=== PATIENT | male | born 1940 | race Asian ===

== ENCOUNTER 2017-11-05 03:37 | Emergency (ER) | payer OTHER ==
[~2017-11-05] VITALS: Ht 167.6 cm; Wt 82.0 kg
[~2017-11-05 03:37] MED LIST: ASPIR 8181 M1 PO; ASPIRIN81 M2 PO; ATORVASTATIN CA40 MG PO; BENADRYL25 MG PO; COLACE100 MG PO; COREG25 M1 PO; COZAAR25 MG PO; ELMIRON100 MG PO; ISOSORBIDE MONO30 MG PO; LOVENOX30 MG/0.3 SC; MIRAPEX0.5 MG PO; NAPROXEN500 MG PO; OMEPRAZOLE40 M1 PO; OXYCODONE HCL5 MG PO; PRAMIPEXOLE DI0.5 MG PO; RANITIDINE HCL300 MG PO; VOLTAREN 1% GE100 GM TP; XARELTO10 MG PO
[2017-11-05 05:10] LABS: CARBON DIOXIDE (BICARBONATE) 26.7 MEQ/L (20-31)
[2017-11-05 05:18] LABS: CHLORIDE 102 mEq/L (99-109); SODIUM 132 mEq/L (136-147)
[2017-11-05 05:20] LABS: GLUCOSE 103 mg/dL (70-99)
[2017-11-05 05:24] LABS: CREATININE 1.1 mg/dL (0.6-1.3); GFR ESTIMATE (CALCULATED) > 59 mL/min/ (58.99-99999)
[2017-11-05 05:25] LABS: UREA NITROGEN (BUN) 15 mg/dL (9-23)
[2017-11-05 05:32] LABS: TROP-I INTERPRETATION NEGATIVE; TROPONIN-I < 0.01 ng/mL (0.0-0.30)
[2017-11-05 05:35] LABS: HEMATOCRIT 36.8 % (38.0-50.0); HEMOGLOBIN 12.6 G/DL (12.5-16.6); MCH 28.6 PG (29.0-34.0); MCHC 34.2 G/DL (30.0-36.0); MCV 83.4 FL (86-99); PLATELET COUNT 132 K/uL (156-360); RBC DIS.WIDTH-CV 13.3 % (11.8-14.6); RED BLOOD COUNT 4.41 M/uL (4.00-5.50); WHITE BLOOD COUNT 8.2 K/uL (4.1-10.2)
[2017-11-05] MEDS ORDERED: PHENERGAN-CODE120 ML PO (05:46)
[2017-11-05] MEDS ORDERED: PREDNISONE20 MG PO (05:46)
[2017-11-05] MEDS ORDERED: LEVAQUIN750 MG PO ×2 (05:46→05:47)
[2017-11-05] MEDS ORDERED: PROVENTIL HFA6.7 GM IH (05:46)
[2017-11-05 06:27] VITALS: BP 151/86
== END 2017-11-05 06:28 | disposition home or self-care (01) ==
LOC: EME 03:37
PROVIDERS: Emergency Medicine
DX: J18.9 Pneumonia, unspecified organism (principal); I10 Essential (primary) hypertension; I25.2 Old myocardial infarction; D64.9 Anemia, unspecified; K21.9 Gastro-esophageal reflux disease without esophagitis; Z95.1 Presence of aortocoronary bypass graft
CPT/HCPCS: 71045; 80048; 82803; 83605; 83880; 84484; 85027; 87040; 87502; 93005; 94640; J7512

== ENCOUNTER 2017-11-11 14:20 | Emergency (ER) | payer OTHER ==
[~2017-11-11] VITALS: Ht 167.6 cm; Wt 79.1 kg
[~2017-11-11 14:20] MED LIST changes: +LEVAQUIN750 MG PO; +PHENERGAN-CODE120 ML PO; +PREDNISONE20 MG PO; +PROVENTIL HFA6.7 GM IH
[2017-11-11 16:07] LABS: HEMATOCRIT 44.3 % (38.0-50.0); MCH 28.2 PG (29.0-34.0); MCHC 33.4 G/DL (30.0-36.0); MCV 84.5 FL (86-99); RBC DIS.WIDTH-SD 43.3 % (39-53); RED BLOOD COUNT 5.24 M/uL (4.00-5.50); WHITE BLOOD COUNT 9.8 K/uL (4.1-10.2)
[2017-11-11 16:10] LABS: CHLORIDE 93 mEq/L (99-109); POTASSIUM 3.7 mEq/L (3.7-5.4); SODIUM 131 mEq/L (136-147)
[2017-11-11 16:12] LABS: GLUCOSE 107 mg/dL (70-99)
[2017-11-11 16:16] LABS: GFR ESTIMATE (CALCULATED) 45 mL/min/ (58.99-99999)
[2017-11-11 16:20] LABS: TROP-I INTERPRETATION NEGATIVE; TROPONIN-I 0.02 ng/mL (0.0-0.30)
[2017-11-11 16:25] LABS: CREATININE 1.6 mg/dL (0.6-1.3); UREA NITROGEN (BUN) 32 mg/dL (9-23)
[2017-11-11 16:53] LABS: ABS NEUTROPHIL COUNT 7.8; ATYPICAL LYMPHOCYTE 2.6 %; EOSINOPHIL ABS CT 0.1; EOSINOPHILS 0.9 % (0-5.0); HEMOGLOBIN 14.8 G/DL (12.5-16.6); LYMPHOCYTES 5.2 % (15.0-45.0); METAMYELOCYTES 0.9 %; MYELOCYTES 1.7 %; NUCLEATED RBC'S 0.9; OTHER 2.6; OVALOCYTES 1+; PLATELET CLUMPS PRESENT; SEG.NEUTROPHILS 74.1 % (46.0-76.0)
[2017-11-11 21:21] LABS: APPEARANCE CLEAR ((CLEAR)); BILIRUBIN NEGATIVE; BLOOD NEGATIVE; COLOR YELLOW ((YELLOW)); GLUCOSE (STRIP) NEGATIVE; KETONES NEGATIVE; LEUKOCYTES NEGATIVE; NITRITE NEGATIVE; PROTEIN (STRIP) NEGATIVE; SPECIFIC GRAVITY 1.015 (1.000-1.030); UROBILINOGEN 0.2 MG/DL (0.2-1.0)
[2017-11-11 22:17] LABS: TROP-I INTERPRETATION NEGATIVE; TROPONIN-I < 0.01 ng/mL (0.0-0.30)
[2017-11-11 22:53] LABS: CHLORIDE 99 mEq/L (99-109); SODIUM 134 mEq/L (136-147)
[2017-11-11 22:55] LABS: GLUCOSE 125 mg/dL (70-99)
[2017-11-11 22:59] LABS: CREATININE 1.3 mg/dL (0.6-1.3); GFR ESTIMATE (CALCULATED) 57 mL/min/ (58.99-99999)
[2017-11-11 23:00] LABS: UREA NITROGEN (BUN) 31 mg/dL (9-23)
[2017-11-11 23:51] VITALS: BP 121/80
== END 2017-11-12 00:09 | disposition home or self-care (01) ==
LOC: EME 14:20
PROVIDERS: Physician Assistant
DX: N17.9 Acute kidney failure, unspecified (principal); E86.0 Dehydration; I95.9 Hypotension, unspecified; I49.3 Ventricular premature depolarization; R94.31 Abnormal electrocardiogram [ECG] [EKG]; I25.2 Old myocardial infarction; K21.9 Gastro-esophageal reflux disease without esophagitis; I10 Essential (primary) hypertension; Z95.1 Presence of aortocoronary bypass graft
CPT/HCPCS: 71046; 80048; 80048 91; 81003; 83880; 84484; 85025; 93005; 99281; 99285; J7030